=== PATIENT | female | born 1980 | race Caucasian/White ===

== ENCOUNTER 2023-10-02 08:32 | Outpatient (CLI) | payer OTHER | END 2023-10-02 09:17 | disposition home or self-care (01) | LOC: NST 08:32 | PROVIDERS: ATTEND Obstetrics & Gynecology Gynecology | DX: Z34.83 Encounter for supervision of other normal pregnancy, third trimester (principal) ==

== ENCOUNTER 2023-10-05 08:31 | Outpatient (CLI) | payer OTHER | END 2023-10-05 08:51 | disposition home or self-care (01) | LOC: NST 08:31 | PROVIDERS: ATTEND Obstetrics & Gynecology Gynecology | DX: Z34.83 Encounter for supervision of other normal pregnancy, third trimester (principal) ==